=== PATIENT | female | born 1935 | race Caucasian/White ===

== ENCOUNTER 2018-10-06 17:47 | Inpatient (IN) | payer OTHER ==
[~2018-10-06] VITALS: Ht 167.6 cm; Wt 60.5 kg
[2018-10-06] MEDS ORDERED: SODIUM CHLORIDE 0.9% 500 ML IVB ONE (18:21)
[2018-10-06 18:40] LABS: Basophils # (auto) 0.1 uL; Basophils % (auto) 0.6 % (0.0-2.0); Eosinophils # (auto) 0 uL; Eosinophils % (auto) 0.4 % (0.0-7.0); Hematocrit 40.8 % (36.0-46.0); Hemoglobin 13.5 g/dL (12.2-16.2); Lymphocytes # (auto) 0.6 uL; Lymphocytes % (auto) 5.1 % (10.0-50.0); Mean Corpuscular Hemoglobin 31.5 pg (28.0-32.0); Mean Corpuscular Volume 95.3 fL (80.0-100.0); Monocytes % (auto) 8.3 % (0.0-12.0); Neutrophils # (auto) 10.8 uL; Neutrophils % (auto) 85.6 % (37.0-80.0); Platelet Count (auto) 208 10^3/uL (140-450); Red Blood Cells 4.28 10^6/uL (4.0-5.20); Red Cell Distribution Width 15.2 % (11.8-14.3); White Blood Cell 12.6 10^3/uL (4.4-10.8)
[2018-10-06 18:54] LABS: INR 0.96 (0.9-1.15); Partial Thromboplastin Time 24.3 sec (23.64-32.05)
[2018-10-06 18:58] LABS: Alanine Aminotransferase 28 U/L (13-56); Albumin 3.3 g/dL (3.4-5.0); Anion Gap 9 (5-15); Aspartate Aminotransferase 16 U/L (15-37); BUN/Creatinine Ratio 26.7; Blood Urea Nitrogen 32 mg/dL (7-18); Calcium 8.4 mg/dL (8.5-10.1); Carbon Dioxide 23 mmol/L (21-32); Chloride 106 mmol/L (98-107); GFR African American 55 mL/min; GFR Non-African American 45 mL/min; Glucose 101 mg/dL (74-106); Sodium 138 mmol/L (136-145)
[2018-10-06 19:01] LABS: Blood Alcohol < 3.0 mg/dL (0-5); Magnesium 2.3 mg/dL (1.6-2.6)
[2018-10-06 19:05] LABS: Alkaline Phosphatase 69 U/L (45-117); Bilirubin, Total 0.3 mg/dL (0.2-1.0); Total Protein 6.4 g/dL (6.4-8.2)
[2018-10-06] MEDS ORDERED: ONDANSETRON HCL 4 MG/2 ML VIAL IV PRN (20:45)
[2018-10-06] MEDS: SODIUM CHLORIDE 0.9% 1,000 ML IV SCH (21:14)
[2018-10-06 23:46] VITALS: BP 126/74
[2018-10-07] MEDS: ACETAMINOPHEN 325 MG TAB PO PRN ×2 (00:15→06:07)
[2018-10-07] MEDS ORDERED: CHOL20007 PO (00:30)
[2018-10-07] MEDS ORDERED: ASPI325T4 PO (00:30)
[2018-10-07] MEDS ORDERED: OME20T PO (00:30)
[2018-10-07] MEDS ORDERED: ALBUAER3 IN (00:30)
[2018-10-07] MEDS ORDERED: ALBU0.084 NEB (00:30)
[2018-10-07] MEDS ORDERED: FLUT100I IN (00:30)
[2018-10-07] MEDS ORDERED: VALS40TA2 PO (00:30)
[2018-10-07] MEDS ORDERED: OMEG1CAP31 PO (00:30)
[2018-10-07] MEDS ORDERED: CARB0.5D28 OP (00:40)
[2018-10-07] MEDS ORDERED: CYCL0.05 EACHEYE (00:40)
[2018-10-07] MEDS ORDERED: POM EACHEYE (00:40)
[2018-10-07] MEDS ORDERED: TRIA0.1P11 TOP (00:40)
[2018-10-07] MEDS: SODIUM CHLORIDE 0.9% 1,000 ML IV SCH (01:22)
[2018-10-07 02:53] VITALS: BP 126/74
[2018-10-07 05:56] VITALS: BP 131/53
[2018-10-07] MEDS: guaiFENesin-DM 100/10mg/5ml SYR PO PRN ×3 (06:05→15:00)
[2018-10-07] MEDS: THROAT LOZENGES(CEPASTAT) MT PRN ×3 (06:05→15:00)
[2018-10-07 06:18] LABS: BUN/Creatinine Ratio 28.6; Calcium 8.4 mg/dL (8.5-10.1)
[2018-10-07 06:27] LABS: Potassium 4.3 mmol/L (3.5-5.1)
[2018-10-07 06:35] LABS: Basophils # (auto) 0.1 uL; Basophils % (auto) 0.6 % (0.0-2.0); Eosinophils # (auto) 0.1 uL; Eosinophils % (auto) 0.9 % (0.0-7.0); Hemoglobin 13.2 g/dL (12.2-16.2); Lymphocytes # (auto) 0.7 uL; Lymphocytes % (auto) 7.6 % (10.0-50.0); Mean Corpuscular Hemoglobin 31.3 pg (28.0-32.0); Mean Corpuscular Hgb Conc. 33.1 g/dL (32.0-36.0); Mean Corpuscular Volume 94.8 fL (80.0-100.0); Monocytes # (auto) 0.9 uL; Monocytes % (auto) 9.7 % (0.0-12.0); Neutrophils # (auto) 7.8 uL; Neutrophils % (auto) 81.2 % (37.0-80.0); Platelet Count (auto) 201 10^3/uL (140-450); Red Blood Cells 4.22 10^6/uL (4.0-5.20); Red Cell Distribution Width 14.9 % (11.8-14.3); White Blood Cell 9.7 10^3/uL (4.4-10.8)
[2018-10-07 09:00] VITALS: BP 139/66
[2018-10-07] MEDS ORDERED: ENOXAPARIN SOD 30 MG/0.3 ML SYRINGE SC SCH (10:00)
[2018-10-07] MEDS ORDERED: DIAZEPAM 5 MG TAB PO ONE (12:00)
[2018-10-07 13:15] VITALS: BP 132/72
[2018-10-07 17:00] VITALS: BP 155/70
[2018-10-07] MEDS ORDERED: SODIUM CHLORIDE 0.9% 1,000 ML IV ONE (17:45)
[2018-10-07 20:08] VITALS: BP 155/70
== END 2018-10-07 20:46 | disposition home health service (06) | DRG 314 ==
LOC: EDBD 17:47 → ER 17:50 → OVERFLOW 17:51 → EAST 23:21 → TELE-EAST 10-07 14:25
PROVIDERS: ADMIT Nurse Practitioner; ATTEND Internal Medicine
DX: I95.9 Hypotension, unspecified (principal); I63.81 Other cerebral infarction due to occlusion or stenosis of small artery; N39.0 Urinary tract infection, site not specified; E86.0 Dehydration; N18.3 Chronic kidney disease, stage 3 (moderate); E11.22 Type 2 diabetes mellitus with diabetic chronic kidney disease; I12.9 Hypertensive chronic kidney disease with stage 1 through stage 4 chronic kidney disease, or unspecified chronic kidney disease; E78.5 Hyperlipidemia, unspecified; J45.909 Unspecified asthma, uncomplicated; Z90.710 Acquired absence of both cervix and uterus; J44.9 Chronic obstructive pulmonary disease, unspecified; K21.9 Gastro-esophageal reflux disease without esophagitis; M19.90 Unspecified osteoarthritis, unspecified site; E11.649 Type 2 diabetes mellitus with hypoglycemia without coma; E86.1 Hypovolemia; I70.0 Atherosclerosis of aorta; Z90.49 Acquired absence of other specified parts of digestive tract; Z90.89 Acquired absence of other organs; Z88.8 Allergy status to other drugs, medicaments and biological substances; Z88.6 Allergy status to analgesic agent; Z88.2 Allergy status to sulfonamides
CPT/HCPCS: 36415; 36600; 70450; 70551; 71045; 80048; 80053; 80320; 82805; 83735; 84484; 85025; 85610; 85730; 93005; 93306; 93886; G0378